=== PATIENT | male | born 1970 | race Caucasian/White ===

== ENCOUNTER 2023-06-11 17:16 | Emergency (ER) | payer SELFPAY ==
[2023-06-11 17:28] VITALS: BP 169/51; PULSE 90; RESP 16; TEMP 36.6; O2SAT 99
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
[2023-06-11] MEDS: dexamethasone 10 mg/mL INJ IM (19:02)
[2023-06-11] MEDS: ketorolac 30 mg/mL INJ IM (19:03)
[2023-06-11 19:08] VITALS: BP 164/68; PULSE 86; RESP 16; TEMP 36.6; O2SAT 98
== END 2023-06-11 19:08 | disposition home or self-care (01) ==
PROVIDERS: Emergency Provider Nurse Practitioner Family
DX: M54.32 Sciatica, left side (principal)
CPT/HCPCS: 72125; 72131; 96372; 99284; J1100; J1885

== ENCOUNTER 2023-10-01 09:16 | Emergency (ER) | payer SELFPAY ==
[2023-10-01 09:26] VITALS: BP 143/93; PULSE 104; RESP 18; TEMP 36.4; O2SAT 99
--- NOTE | 2023-10-01 09:44 | CT_ITS ---
WS: [id number] CT ABDOMEN PELVIS TECHNIQUE: Contrast-enhanced CT of the abdomen and pelvis with coronal and sagittal reformatted image s. CLINICAL INFORMATION: abd pain COMPARISON: None. DLP: 526.[address] scans at [facility] use at least one of these dose optimization techniques: automated e xposure control; mA and/or kV adjustment per patient size (includes targeted exams where dose is matc hed to clinical indication); or iterative reconstruction. FINDINGS: Lung bases are well aerated. Mild hepatomegaly. Normal spleen. Normal GE junction. Small amount of fl uid in the stomach and proximal duodenum. Normal pancreatic parenchymal enhancement. Normal gallbladd er. Normal portal vein and splenic vein. Normal caliber abdominal aorta. Celiac and SMA are patent. A drenal glands are normal. No hydronephrosis in either kidney. Normal spleen. Normal caliber abdominal aorta. Dense rectosigmoid constipation with rectal distention. Sigmoid const ipation. No evidence of high-grade small or large bowel obstruction. Normal appendix in the RIGHT low er quadrant. Mild cecal and transverse colon constipation. No periaortic or retroperitoneal lymphaden opathy. Mild lumbar curve convex LEFT. Small fat-containing RIGHT inguinal hernia. CT/CT abdomen pelvis w con* [id number] IMPRESSION: 1. Hepatomegaly with enlargement the RIGHT hepatic lobe. 2. Normal appendix in the RIGHT lower quadrant. No evidence of acute appendici tis. 3. Rectosigmoid constipation with rectal distention. Mild cecal and transverse colon constipation. 4. Small fat-containing RIGHT inguinal hernia. No herniated bowel. 5. No other acute findings.
[2023-10-01 09:45] LABS: Charge for UA Resulting for Rev
--- NOTE | 2023-10-01 09:47 | ED_ITS ---
HPI - Abdominal Pain 2 General: Chief Complaint: Abdominal Pain Stated Complaint: abd pain Time Seen by Provider: 10/01/23 09:33 History of Present Illness: 53-year-old male who [facility] with right lower quadrant abdominal pain. He has had this intermittently for couple of days he is concerned about a hernia there he states he had some bulging at times but it is gone now he denies dysuria urgency or frequency no fever sweats or chills no diarrhea in fact is actually more concerned about constipation has tried taking some medication to relieve constipation. No previous abdominal surgeries. Associated Symptoms: Denies chills, dysuria and fever(s) Review of Systems 2 Const: Denies: fever(s) or chills Card: Denies: chest pain Resp: Denies: dyspnea GI: Denies: abdominal pain : Denies: dysuria, urinary frequency or urinary urgency Musc: Denies: neck pain or back pain Skin/Breast: Denies: rash Physical Exam 2 Const: COMMON NORMALS: no acute distress GENERAL APPEARANCE: cooperative and comfortable ORIENTATION/CONSCIOUSNESS: Yes awake, Yes oriented to person, Yes oriented to place and Yes oriented to time HENMT: COMMON NORMALS: normocephalic, atraumatic and hearing grossly normal bilaterally HEAD & SCALP: normocephalic and atraumatic Resp: COMMON NORMALS: normal respiratory effort, No retractions, No use of accessory muscles and clear to auscultation bilaterally AUSCULTATION: clear to auscultation bilaterally Cardio: COMMON NORMALS: regular rate, regular rhythm and No murmurs present (Cardio) RATE: regular rate RHYTHM: regular rhythm GI: COMMON NORMALS: Soft to palpation and No hepatosplenomegaly present A USCULTATION: Yes normoactive bowel sounds PALPATION: Yes Soft to palpation, No Tenderness to palpation present (GI), No Guarding due to palpation present (GI) and Yes No hepatosplenomegaly present : OTHER: Loose right inguinal hernia ring no masses within the hernia no evidence of herniation of bowel. Extremity: COMMON NORMALS: normal to inspection, capillary refill normal, no clubbing, cyanosis or edema, no calf tenderness and no pedal edema Neuro: SENSORIUM/ORIENTATION: Yes oriented to person, Yes oriented to place and Yes oriented to time Skin: COMMON NORMALS: no rashes or lesions noted GENERAL SKIN EXAM: no rashes or lesions noted Course 2 Vital Signs: Vital signs: Vital Signs Temperature 97.5 F L 10/01/23 09:26 Pulse Rate 89 10/01/23 12:12 Respiratory Rate 18 10/01/23 12:12 Blood Pressure 126/84 10/01/23 12:12 Pulse Oximetry 99 10/01/23 12:12 Oxygen Delivery Me thod Room Air 10/01/23 09:26 MDM - Abdominal Pain Medical Decision Making Labs and imaging reviewed patient does have an elevated white count there is some omental fat in the right inguinal hernia but no acute herniation no bowel obstruction liver functions are elevated. His lymphocyte count is elevated as well so white count is 17 for his nontoxic in appearance. CT did not show any other significant abnormalities transaminase and alk phos are elevated as well as his lipase but there is no CT abnormality of his pancreas. Urine was unremarkable. Discussed the patient he should have further follow-up and evaluation for the elevated liver enzymes has been a chronic longstanding thing he is unsure if he wants to pursue it he has not been known to have hepatitis B or C in the past he denies regular use of alcohol. Referral made to general surgery to evaluate for treatment for hernia options patient is not interested in pursuing anything as far as his liver enzymes are concerned. I did encourage him to reconsider and follow-up with primary care doctor Lab Data 10/01/23 09:49 10/01/23 09:49 Labs/Radiology: Radiology Impressions Abdomen/Pelvis CT 10/01/23 09:44 IMPRESSION: 1. Hepatomegaly with enlargement the RIGHT hepatic lobe. 2. Normal appendix in the RIGHT lower quadrant. No evidence of acute appendicitis. 3. Rectosigmoid constipation with rectal distention. Mild cecal and transverse colon constipation. 4. Small fat-containing RIGHT inguinal hernia. No herniated bowel. 5. No other acute findings. Laboratory Results WBC 17.40 10^3/uL (3.29-11.43) H 10/01/23 09:49 RBC 5.61 10^6/uL (3.85-5.65) 10/01/23 09:49 Hgb 15.70 g/dL (11.27-16.99) 10/01/23 09:49 Hct 48.4 % (37-53) 10/01/23 09:49 MCV 86.3 fl (82-101) 10/01/23 09:49 MCH 28.0 pg (27-33) 10/01/23 09:49 MCHC 32.4 g/dL (30-55) 10/01/23 09:49 RDW 13.6 % (12.1-15.1) 10/01/23 09:49 Plt Count 274 10^3/cmm (157-399) 10/01/23 09:49 MPV 9.4 fL (7.4-10.4) 10/01/23 09:49 Lymph % (Auto) Not Reportable 10/01/23 09:49 [place] % (Auto) Not Reportable 10/01/23 09:49 Lymph # (Auto) Not Reportable 10/01/23 09:49 [place] # (Auto) Not Reportable 10/01/23 09:49 Total Counted 100 (0-100) 10/01/23 09:49 Atypical Lymphs % 27.0 % (0-5) H 10/01/23 09:49 Absolute Neutrophils 4.0 10^3/cmm (1.4-6.5) 10/01/23 09:49 Segmented Neutrophils 21 % 10/01/23 09:49 Abs Segm Neuts (Man) 3.7 10/cmm (1.6-7.1) 10/01/23 09:49 Band Neutrophils 2.0 % 10/01/23 09:49 Abs Band Neuts (Man) 0.3 10^3/cmm (0.0-1.2) 10/01/23 09:49 Absolute Lymphocytes 12.7 10^3/cmm (1.2-3.4) H 10/01/23 09:49 Lymphocytes (Manual) 46 % 10/01/23 09:49 Monocytes (Manual) 2.0 % 10/01/23 09:49 Absolute Monocytes 0.3 10^3/cmm (0.1-0.6) 10/01/23 09:49 Eosinophils (Manual) 1 % 10/01/23 09:49 Absolute Eosinophils 0.2 10^3/cmm (0.0-0.7) 10/01/23 09:49 Basophils (Manual) 0.0 % 10/01/23 09:49 Absolute Basophils 0.0 10^3/cmm (0.0-0.2) 10/01/23 09:49 Metamyelocytes 0.0 % 10/01/23 09:49 Myelocytes 1.0 % 10/01/23 09:49 Platelet Estimate Normal (Normal) 10/01/23 09:49 Giant Platelets Trace 10/01/23 09:49 Sodium 137 mmol/L (136-145) 10/01/23 09:49 Potassium 4.5 mmol/L (3.5-5.1) 10/01/23 09:49 Chloride 100 mmol/L (98-107) 10/01/23 09:49 Carbon Dioxide 28 mmol/L (22-29) 10/01/23 09:49 Anion Gap 13.5 (5-19) 10/01/23 09:49 BUN 15 mg/dL (6-20) 10/01/23 09:49 Creatinine 0.9 mg/dL (0.7-1.2) 10/01/23 09:49 GFR Calculation 88.3 mL/min (90-130) L 10/01/23 09:49 Glucose 117 mg/dL (65-115) H 10/01/23 09:49 Calculated Osmolality 286 mOsm/kg (285-295) 10/01/23 09:49 Calcium 9.0 mg/dL (8.5-10.5) 10/01/23 09:49 Total Bilirubin 0.3 mg/dL (0.15-1.2) 10/01/23 09:49 AST 91 U/L (0-40) H 10/01/23 09:49 ALT 189 U/L (0-41) H 10/01/23 09:49 Alkaline Phosphatase 240 U/L (40-130) H 10/01/23 09:49 Total Protein 7.0 g/dL (6.6-8.7) 10/01/23 09:49 Albumin 3.7 g/dL (3.5-5.2) 10/01/23 09:49 Globulin 3.3 g/dL (1.3-4.6) 10/01/23 09:49 Lipase 148 U/L (13-60) H 10/01/23 09:49 Urine Color Yellow (Yellow) 10/01/23 09:39 Urine Appearance Clear (CLEAR) 10/01/23 09:39 Urine pH 6.0 (5-7) 10/01/23 09:39 Ur Specific [place] 1.015 (1.005-1.030) 10/01/23 09:39 Urine Protein Negative (Negative) 10/01/23 09:39 Urine Glucose (UA) Negative (Normal) 10/01/23 09:39 Urine Ketones Negative (Negative) 10/01/23 09:39 Urine Blood Negative (Negative) 10/01/23 09:39 Urine Nitrate Negative (Negative) 10/01/23 09:39 Urine Bilirubin Negative (Negative) 10/01/23 09:39 Urine Urobilinogen 1.0 mg/dL (Negative) 10/01/23 09:39 Ur Leukocyte Esterase Negative (Negative) 10/01/23 09:39 Amorphous Sediment Not Reportable 10/01/23 09:39 All radiology interpretation(s) finalized by discharge Discharge Plan Discharge Patient Disposition: Home Clinical Impression: Abdominal pain, Constipation, Transaminitis, Right inguinal hernia Condition: Stable Prescriptions: No Action Aleve 220 mg Tablet 440 mg PO Q12H PRN (Reason: Pain) ibuprofen 200 mg Tablet 800 mg PO Q6H PRN (Reason: Pain) Discharge Orders: Discharge ED (Routine); Ordered 10/01/23 Ordered By: Chris Perrin Discharge Diet: As Directed Discharge Activity: Increase activity as tolerated Patient Instructions: Abdominal Pain (ED), Opioid Safety, Pain Management Activity Restrictions/Additional Instructions: Thank you for choosing [facility] for your healthcare needs today. It is very important that you follow up as instructed or that you return to the Emergency Department should you have concerns or if your condition changes or worsens in any way. You were seen today with complaints of abdominal pain. CT did not show any acute abnormality to the right inguinal hernia there is a small amount of abdominal fat in the hernia but no signs of obstruction. He also had elevation of your lipase and your liver enzymes. This should be followed up with your primary care doctor. Will set you up for an appointment with general surgery to discuss treatment options regarding the inguinal hernia. You should follow-up with your primary care doctor to have your lipase and your liver functions rechecked. Avoid use of alcohol and Tylenol. Coding Level of Care Code ED Client Technical Professional for Judith Kendall
[2023-10-01 09:56] LABS: Bilirubin Urine Negative (Negative); Blood Urine Negative (Negative); Glucose Urine UA Negative (Normal); Ketones Urine Negative (Negative); Leukocyte Esterase Urine Negative (Negative); Nitrate Urine Negative (Negative); Protein Urine Negative (Negative); Specific Gravity, Urine 1.015 (1.005-1.030); Urine Appearance Clear (CLEAR); Urine Color Yellow (Yellow)
[2023-10-01] MEDS: sodium chloride 0.9% 1,000 ML 999 ML IV (09:59)
[2023-10-01 10:12] LABS: Hematocrit 48.4 % (37-53); Mean Corpuscular HGB Conc 32.4 g/dL (30-55); Mean Corpuscular Volume 86.3 fl (82-101); Mean Platelet Volume 9.4 fL (7.4-10.4); Platelet Count 274 10^3/cmm (157-399); Red Blood Count 5.61 10^6/uL (3.85-5.65); Red Cell Distribution Width 13.6 % (12.1-15.1)
--- NOTE | 2023-10-01 10:14 | PC.NURSE ---
pt states he does have hx of hernia.
[2023-10-01 10:25] LABS: Alanine Aminotransferase 189 U/L (0-41); Albumin Level 3.7 g/dL (3.5-5.2); Alkaline Phosphatase 240 U/L (40-130); Anion Gap 13.5 (5-19); Aspartate Amino Transferase 91 U/L (0-40); Blood Urea Nitrogen 15 mg/dL (6-20); Carbon Dioxide 28 mmol/L (22-29); Chloride 100 mmol/L (98-107); Creatinine Clr Calc Pharmacy 108.7946; Globulin 3.3 g/dL (1.3-4.6); Glomerular Filtration Rate 88.3 mL/min (90-130); Glucose 117 mg/dL (65-115); Lipase 148 U/L (13-60); Osmolality Calculated 286 mOsm/kg (285-295); Potassium 4.5 mmol/L (3.5-5.1); Sodium 137 mmol/L (136-145); Total Bilirubin 0.3 mg/dL (0.15-1.2)
[2023-10-01] MEDS: iohexol 350 mg/mL 500 mL Btl (per mL) IV (10:29)
[2023-10-01 10:59] LABS: Absolute Segmented Neutrophil 3.7 10/cmm (1.6-7.1); Segmented Neutrophils 21 %; Slide Review Slide Review Perform; Total Cells Counted 100 (0-100)
[2023-10-01 11:00] LABS: Absolute Eosinophils 0.2 10^3/cmm (0.0-0.7); Band Neutrophils Absolute 0.3 10^3/cmm (0.0-1.2); Eosinophils 1 %; Giant Platelets Trace; Lymphocytes 46 %; Lymphocytes Absolute 12.7 10^3/cmm (1.2-3.4); Monocytes Absolute 0.3 10^3/cmm (0.1-0.6); Platelet Estimate Normal (Normal)
[2023-10-01 12:12] VITALS: BP 126/84; PULSE 89; RESP 18; O2SAT 99
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
== END 2023-10-01 12:19 | disposition home or self-care (01) ==
PROVIDERS: Emergency Provider Family Medicine
DX: R10.31 Right lower quadrant pain (principal); K59.00 Constipation, unspecified; R74.01 Elevation of levels of liver transaminase levels; K40.90 Unilateral inguinal hernia, without obstruction or gangrene, not specified as recurrent
CPT/HCPCS: 36415; 74177; 80053; 81003; 81015; 83690; 85007; 85025; 99285; J7030; Q9967

== ENCOUNTER 2024-07-07 13:16 | Emergency (ER) | payer MEDICAID, SELFPAY ==
[2024-07-07 13:18] VITALS: BP 170/123; PULSE 109; RESP 16; TEMP 36.8; O2SAT 97; BMI 24.4
--- NOTE | 2024-07-07 13:40 | XR_ITS ---
WS: [id number] XR ribs LT mn 3V w CXR1V [id number] REASON FOR EXAM: trauma FINDINGS: No left rib fracture is identified. No left pleural effusion or left lung abnormality. XR/XR ribs LT mn 3V w CXR1V [id number] IMPRESSION: No acute abnormality.
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
[2024-07-07] MEDS: ketorolac 30 mg/mL INJ IM (13:47)
[2024-07-07 15:26] VITALS: BP 127/92; PULSE 81; O2SAT 98
== END 2024-07-07 15:27 ==
PROVIDERS: Emergency Provider Emergency Medicine
DX: S20.222A Contusion of left back wall of thorax, initial encounter (principal); Y04.2XXA Assault by strike against or bumped into by another person, initial encounter
CPT/HCPCS: 71101; 96372; 99284; J1885